=== PATIENT | female | born 2000 | race African-American/Black ===

== ENCOUNTER 2023-04-16 13:05 | Emergency (ER) | payer BC, OTHER ==
[2023-04-16] MEDS ORDERED: Famotidine 20 MG TAB ONE (14:17)
[2023-04-16] MEDS ORDERED: Dexamethasone 10 MG/ML VIAL ONE (14:19)
[2023-04-16] MEDS ORDERED: Loratadine 10 MG TAB PO SCH (14:30)
[2023-04-16] MEDS ORDERED: Cetirizine HCl 10 MG TAB PO SCH (14:30)
== END 2023-04-16 15:50 | disposition home or self-care (01) ==
LOC: ERS 13:05
DX: L50.0 Allergic urticaria (principal); T78.40XA Allergy, unspecified, initial encounter
CPT/HCPCS: 99283; J1100

== ENCOUNTER 2023-07-05 10:20 | Emergency (ER) | payer BC ==
[2023-07-05] MEDS ORDERED: Acetaminophen 500 MG TAB ONE (10:36)
[2023-07-05 11:28] LABS: #Basophils 0.1 thou/uL (0.0-0.2); #Eosinphils 0.2 thou/uL (0.0-0.7); #Monocytes 0.6 thou/uL (0.11-0.59); #Neutrophils 3.3 thou/uL (1.40-6.50); %Basophils 0.8 % (0.0-1.0); %Eosinophils 2.7 % (0.0-10.0); %Lymphocytes 32.8 % (21.0-51.0); %Monocytes 9.9 % (0.0-10.0); %Neutrophils 53.6 % (42.0-75.0); Hematocrit 37.6 % (36.0-47.0); Hemoglobin 12.7 g/dL (12.0-16.0); Mean Corpuscular HGB CONC 33.8 g/dL (32.0-36.0); Mean Corpuscular Hemoglobin 30.8 pg (27.0-31.0); Mean Platelet Volume 8.8 fL (7.4-10.4); Platelet Count 377 10x3/uL (130-400); RBC Distribution Width 12.4 % (11.5-14.5); Red Blood Cell (RBC) Count 4.13 mill/uL (4.20-5.40); White Blood Cell (WBC) Count 6.2 10x3/uL (4.8-10.8)
[2023-07-05] MEDS ORDERED: Metoclopramide HCl 10 MG (2 mL) VIAL ONE (11:40)
[2023-07-05] MEDS ORDERED: diphenhydrAMINE 50 MG/ML VIAL ONE (11:40)
[2023-07-05 11:51] LABS: ALT (SGPT) 8 U/L (8-55); AST (SGOT) 9 U/L (5-34); Albumin 4.1 g/dL (3.5-5.0); Alkaline Phosphatase 34 U/L (40-110); Anion Gap 10 mmol/L (10-20); BUN (Urea Nitrogen) 12 mg/dL (7.0-18.7); Bilirubin, Total 0.3 mg/dL (0.2-1.2); Calc. Creatinine Clearance 0 mL/min (70-130); Carbon Dioxide 24 mmol/L (22-29); Chloride 108 mmol/L (98-107); Estimated GFR 115; Globulin 2.2 g/dL (2.4-3.5); Glucose 81 mg/dL (70-105); Potassium 3.7 mmol/L (3.5-5.1); Protein, Total 6.3 g/dL (6.0-8.3); Sodium 138 mmol/L (136-145)
[2023-07-05 11:52] LABS: Acetaminophen Less than 10 mcg/mL (10.0-30.0); Alcohol Less than 10.0 mg/dL (Less than 10); Magnesium 1.9 mg/dL (1.6-2.6); Salicylate Less than 8.0 mg/dL (15.0-30.0)
[2023-07-05 11:54] LABS: Troponin I 0.011 ng/mL (< 0.028)
[2023-07-05 12:01] LABS: BHCG - Serum Negative (NEGATIVE); Pregs Control Background? CLEAR/WHITE (CLR/WHITE); Pregs Control Bar Appear? YES (CONTROL BAR)
[2023-07-05 13:57] LABS: Troponin I Less than 0.010 ng/mL (< 0.028)
== END 2023-07-05 14:10 | disposition home or self-care (01) ==
LOC: ERS 10:20
DX: R55 Syncope and collapse (principal); R51.9 Headache, unspecified; R07.89 Other chest pain; R29.710 NIHSS score 10; J45.909 Unspecified asthma, uncomplicated; W19.XXXA Unspecified fall, initial encounter; Z87.891 Personal history of nicotine dependence; Z79.899 Other long term (current) drug therapy
CPT/HCPCS: 36415; 70450; 71046; 80053; 80307; 83735; 84443; 84484; 84703; 85025; 85379; 93005; 96365; 96375; J1200; J2765

== ENCOUNTER 2025-05-01 23:31 | Emergency (ER) | payer BC ==
[2025-05-02] MEDS ORDERED: Ibuprofen 800 MG TAB ONE (01:05)
[2025-05-02] MEDS ORDERED: HYDROcodone/Acetaminophen 10/325 mg Tablet ONE (01:06)
== END 2025-05-02 01:29 | disposition home or self-care (01) ==
LOC: ERS 23:31
DX: J01.90 Acute sinusitis, unspecified (principal)
CPT/HCPCS: 99283